=== PATIENT | male | born 1960 | race African-American/Black ===

== ENCOUNTER 2017-09-21 21:56 | Observation (INO) | payer OTHER ==
--- NOTE | 2017-09-21 22:07 | PDOC ---
History of Present Illness - General Stated Complaint: CHEST PAIN Time Seen by Provider: 09/21/17 22:06 Past History - Past Medical History Allergies/Adverse Reactions: Allergies Allergy/AdvReac Type Severity Reaction Status Date / Time No Known Allergies Allergy Verified 06/24/14 13:30 Home Medications: Ambulatory Orders Amlodipine Besylate [Norvasc -] 5 mg PO DAILY 06/24/14 Aspirin [ASA -] 325 mg PO DAILY 06/24/14 Benazepril HCl 20 mg PO DAILY 06/24/14 Carvedilol 3.125 mg PO BID 06/24/14 HTN: Yes - Suicide/Smoking/Psychosocial Hx Smoking History: Never smoked Have you smoked in the past 12 months: No Hx Alcohol Use: No Substance Use Type: None
[2017-09-21] MEDS ORDERED: NITROGLYCERIN 2% OINTMENT - 1GM PACKET TD ONE ×2 (22:24→22:32)
[2017-09-21 22:26] VITALS: BMI 30.1
--- NOTE | 2017-09-21 22:37 | PDOC ---
History of Present Illness - General History Source: Patient Exam Limitations: No Limitations - History of Present Illness Initial Comments: 09/21/17 22:31 Patient is a 57M with history of MIx2 (2015 and 2009) here today complaining of sudden onset of chest pain at rest. Patient states that he was sitting in the [employer] store when he suddenly felt chest pain with associated shortness of breath , vertigo and diaphoresis. Patient states that he then lost consciousness for an unknown period of time. He rapidly returned to baseline. He took one of his home nitros and reports resolutions of his symptoms. He currently denies chest pain. He denies leg swelling, history of blood clots, and recent travel. Cards: Dr Camarena <Pato Coy - Last Filed: 09/21/17 23:59> <Jesús Trevizo - Last Filed: 09/22/17 01:24> - General Chief Complaint: Chest Pain Stated Complaint: CHEST PAIN Time Seen by Provider: 09/21/17 22:06 Past History - Past Medical History HTN: Yes - Suicide/Smoking/Psychosocial Hx Smoking History: Never smoked Have you smoked in the past 12 months: No Information on smoking cessation initiated: No Hx Alcohol Use: No Drug/Substance Use Hx: No Substance Use Type: None <Pato Coy - Last Filed: 09/21/17 23:59> <Jesús Trevizo - Last Filed: 09/22/17 01:24> - Past Medical History Allergies/Adverse Reactions: Allergies Allergy/AdvReac Type Severity Reaction Status Date / Time No Known Allergies Allergy Verified 09/21/17 22:14 Home Medications: Ambulatory Orders Amlodipine Besylate [Norvasc -] 5 mg PO DAILY 06/24/14 Aspirin [ASA -] 325 mg PO DAILY 06/24/14 Carvedilol 3.125 mg PO BID 06/24/14 Review of Systems - Review of Systems Comments:: 09/21/17 22:36 GENERAL/CONSTITUTIONAL: No fever or chills. No weakness. HEAD, EYES, EARS, NOSE AND THROAT: No change in vision. No sore throat. CARDIOVASCULAR: Positive for chest pain and shortness of breath RESPIRATORY: No cough, wheezing, or hemoptysis. GASTROINTESTINAL: Positive for nausea. Negative for vomiting, diarrhea or constipation. GENITOURINARY: No dysuria, frequency, or change in urination. MUSCULOSKELETAL: No joint or muscle swelling or pain. No neck or back pain. SKIN: No rash NEUROLOGIC: No headache, vertigo, loss of consciousness, or change in strength/ sensation. ENDOCRINE: No increased thirst. No abnormal weight change HEMATOLOGIC/LYMPHATIC: No anemia, easy bleeding, or history of blood clots. ALLERGIC/IMMUNOLOGIC: No hives or skin allergy. <Pato Coy - Last Filed: 09/21/17 23:59> *Physical Exam - Vital Signs Last Vital Signs Temp Pulse Resp BP Pulse Ox 98.0 F 62 18 118/84 99 09/21/17 22:02 09/21/17 22:02 09/21/17 22:02 09/21/17 22:02 09/21/17 22:02 - Physical Exam Comments: 09/21/17 22:37 GENERAL: Awake, alert, and fully oriented, in no acute distress HEAD: No signs of trauma, normocephalic, atraumatic EYES: PERRLA, EOMI, sclera anicteric, conjunctiva clear ENT: Auricles normal inspection, hearing grossly normal, nares patent, oropharynx clear without exudates. Moist mucosa LUNGS: No distress, speaks full sentences, clear to auscultation bilaterally HEART: Regular rate and rhythm, normal S1 and S2, no murmurs, rubs or gallops, peripheral pulses normal and equal bilaterally. ABDOMEN: Soft, nontender, normoactive bowel sounds. No guarding, no rebound. No masses EXTREMITIES: Normal inspection, Normal range of motion, no edema. No clubbing or cyanosis. NEUROLOGICAL: Cranial nerves II through XII grossly intact. Normal speech, normal gait, no focal sensorimotor deficits SKIN: Warm, Dry, normal turgor, no rashes or lesions noted. <Pato Coy - Last Filed: 09/21/17 23:59> - Vital Signs Last Vital Signs Temp Pulse Resp BP Pulse Ox 98.0 F 62 18 118/84 99 09/21/17 22:02 09/21/17 22:02 09/21/17 22:02 09/21/17 22:02 09/21/17 22:02 <Jesús Trevizo - Last Filed: 09/22/17 01:24> ED Treatment Course - LABORATORY CBC & Chemistry Diagram: 09/21/17 22:32 09/21/17 22:32 - RADIOLOGY Radiology Studies Ordered: Category Date Time Status CHEST X-RAY PORTABLE* [RAD] Stat Radiology 09/21/17 22:18 Ordered - Medications Given in the ED: ED Medications Discontinued Medications Generic Name Dose Route Start Last Admin Trade Name Freq PRN Reason Stop Dose Admin Nitroglycerin 1 inch 09/21/17 22:24 09/21/17 22:30 Nitro-Bid 2% Paste - TD 09/21/17 22:25 1 inch ONCE ONE Administration <Pato Coy - Last Filed: 09/21/17 23:59> - LABORATORY CBC & Chemistry Diagram: 09/21/17 22:32 09/21/17 22:32 - ADDITIONAL ORDERS Additional order review: Laboratory Results 09/21/17 09/21/17 22:32 22:32 PT with INR 12.60 INR 1.12 Sodium 143 Potassium 3.3 L Chloride 106 Carbon Dioxide 28 Anion Gap 9 BUN 17 D Creatinine 1.0 Creat Clearance w eGFR > 60 Random Glucose 141 H D Calcium 8.2 L Magnesium 2.1 Total Bilirubin 0.7 D AST 15 D ALT 26 D Alkaline Phosphatase 103 D Creatine Kinase 326 H Creatine Kinase Index 0.6 CK-MB (CK-2) 2.102 Troponin I < 0.02 D Total Protein 6.8 Albumin 3.9 09/21/17 22:32 RBC 4.39 MCV 87.1 MCHC 33.8 RDW 13.3 MPV 8.3 Neutrophils % 56.1 Lymphocytes % 28.8 D Monocytes % 7.9 Eosinophils % 6.2 H Basophils % 1.0 - Medications Given in the ED: ED Medications Discontinued Medications Generic Name Dose Route Start Last Admin Trade Name Freq PRN Reason Stop Dose Admin Nitroglycerin 1 inch 09/21/17 22:24 09/21/17 22:30 Nitro-Bid 2% Paste - TD 09/21/17 22:25 1 inch ONCE ONE Administration Potassium Chloride 40 meq 09/22/17 00:34 09/22/17 00:49 K-Dur - PO 09/22/17 00:35 40 meq ONCE ONE Administration <Jesús Trevizo - Last Filed: 09/22/17 01:24> Medical Decision Making - Medical Decision Making 09/21/17 22:37 Patient is 57M with history of CAD, MIx2 here today with syncopal episode. History concerning for possible run of VTach. Vital signs stable, and exam normal. Will evaluate with cbc, cmp, trop, mg, pt/inr, ekg, cxr. Will admit. Patient took aspirin at home 325 this morning. Given 1inch of paste. EKG shows 1st degree av block with rate of 79. No st elevations/depression. No significant t wave abnormalities. MO elongated to 296. Q waves in III and aVF stable to prior EKG done in 06/24/2014. 09/21/17 23:03 CXR shows no acute cardiopulmonary process. 09/21/17 23:59 CBC reassuring. Signed out to Dr Trevizo. <Pato Coy - Last Filed: 09/21/17 23:59> *DC/Admit/Observation/Transfer <Pato Coy - Last Filed: 09/21/17 23:59> - Discharge Dispostion Decision to Admit order: Yes <Jesús Trevizo - Last Filed: 09/22/17 01:24> Diagnosis at time of Disposition: Chest pain Qualifiers: Chest pain type: unspecified Qualified Code(s): R07.9 - Chest pain, unspecified Syncope Qualifiers: Syncope type: unspecified Qualified Code(s): R55 - Syncope and collapse - Discharge Dispostion Condition at time of disposition: Fair
[2017-09-21 22:47] LABS: EOS % 6.2 % (0-4.5); HEMATOCRIT 38.2 % (35.4-49); HEMOGLOBIN 12.9 GM/dL (11.7-16.9); LYMPH % 28.8 % (8-40); MCH 29.4 pg (25.7-33.7); MCHC 33.8 g/dl (32.0-35.9); MEAN CELL VOLUME 87.1 fl (80-96); MEAN PLT VOLUME 8.3 fl (7.5-11.1); MONO % 7.9 % (3.8-10.2); NEUT % 56.1 % (42.8-82.8); PLATELET COUNT 168 K/MM3 (134-434); RBC 4.39 M/mm3 (4.00-5.60); RDW 13.3 % (11.9-15.9); WHITE BLOOD COUNT 6.2 K/mm3 (4.0-10.0)
--- NOTE | 2017-09-21 23:03 | PDOC ---
Attending Attestation - HPI HPI: 09/21/17 23:47 The patient is a 57 year old male, with a significant past medical history of MIx2 (2016 and 2010), who presents to the emergency department complaining of chest pain onset today and a syncopal episode. He notes that he was at rest when the pain began. He describes the pain as ranging from mild to moderate, without radiation or modifying factors. He notes that he also has been experiencing diaphoresis, shortness of breath and vertigo. He notes that he is not aware of how long he was unconscious for. He notes that he took his home nitros, which helped resolve his symptoms. The patient denies headache, fever, chills, nausea, vomiting, diarrhea and constipation. Denies dysuria, frequency, urgency and hematuria. Allergies: None Cardiology: Dr. Camarena <Isidro Dominique - Last Filed: 09/21/17 23:47> - Resident Resident Name: Pato Coy - ED Attending Attestation I have performed the following: I have examined & evaluated the patient, The case was reviewed & discussed with the resident, I agree w/resident's findings & plan, Exceptions are as noted - Physicial Exam PE: 09/22/17 00:11 Patient is awake and alert, well-appearing, in no distress Normocephalic, atraumatic PERRLA, EOMI CTA, RRR No lower extremity edema - Medical Decision Making 09/22/17 00:11 Patient is a well-appearing 57-year-old male with history of CAD (status post NM 2), negative angiocatheter March 2017, presents with substernal chest tightness associated with diaphoresis, lightheadedness, and shortness of breath that was relieved by sublingual Nitrostat which in turn was followed by a syncopal episode without witnessed seizure-like activity. In the ER, patient is awake and alert, nontoxic-appearing. Chest x-ray reveals no evidence of cardiomegaly/infiltrate or effusion. EKG reveals first-degree AV block but no evidence of acute ischemia and borderline widened QRS. EKG is unchanged from previous. I suspect ACS. There is no indication for CT of head at this time as patient is nonfocal I do not suspect seizure as the underlying cause of his syncope. Patient has taken a full aspirin-325 mg prior to arrival. We'll administer transdermal nitroglycerin. Will obtain cardiac enzymes. Will admit with cardiology consult. 09/22/17 01:25 Patient is resting comfortably and is currently pain-free. First set of cardiac enzymes reveals an elevated CPK but a negative CK-MB fraction as well as negative troponin. Patient's heart score is noted to be 5. Patient will be admitted to telemetry further evaluation and treatment with a cardiology consultation. <Jesús Trevizo - Last Filed: 09/22/17 01:26> Heart Score/ECG Review - History History: Highly suspicious - Electrocardiogram EKG: Non specific repolarization disturbance - Age Age: 45-65 - Risk Factors Risk Factors Heart Score: Yes Hx Hypertension Based on the list above the patient has:: 1-2 risk factors - Troponin Troponin: </= normal limit - Score Heart Score - Total: 5 <Jesús Trevizo - Last Filed: 09/22/17 01:26>
[2017-09-21 23:06] LABS: INR 1.12 (0.82-1.09); PROTHROMBIN TIME (PATIENT) 12.6 SEC (9.7-13.0)
[2017-09-22 00:19] LABS: ALBUMIN 3.9 g/dl (3.4-5.0); CALCIUM 8.2 mg/dL (8.5-10.1); CO2 28 mmol/L (21-32); GLUCOSE,RANDOM 141 mg/dL (74-106); MAGNESIUM 2.1 mg/dL (1.8-2.4)
[2017-09-22 00:27] LABS: ALK PHOS 103 U/L (45-117); ANION GAP 9 (8-16); CHLORIDE 106 mmol/L (98-107); POTASSIUM 3.3 mmol/L (3.5-5.1); SGOT/AST 15 U/L (15-37); SGPT/ALT 26 U/L (12-78); SODIUM 143 mmol/L (136-145); TOT PROT 6.8 g/dl (6.4-8.2)
[2017-09-22] MEDS ORDERED: POTASSIUM CHLORIDE TABS 20 MEQ TABLET.ER (FP) PO ONE ×2 (00:34→01:57)
[2017-09-22 00:39] LABS: BILIRUBIN,TOTAL 0.7 mg/dL (0.2-1.0); BLOOD UREA NITROGEN 17 mg/dL (7-18)
[2017-09-22 06:39] VITALS: TEMP 98.1
[2017-09-22 07:14] VITALS: BP 118/67; PULSE 64
[2017-09-22 08:12] LABS: BASO % 0.9 % (0-2.0); EOS % 4.8 % (0-4.5); HEMATOCRIT 37.1 % (35.4-49); HEMOGLOBIN 12.8 GM/dL (11.7-16.9); MCH 30.3 pg (25.7-33.7); MCHC 34.6 g/dl (32.0-35.9); MEAN CELL VOLUME 87.7 fl (80-96); NEUT % 54.3 % (42.8-82.8); PLATELET COUNT 160 K/MM3 (134-434); RBC 4.23 M/mm3 (4.00-5.60); RDW 13.3 % (11.9-15.9); WHITE BLOOD COUNT 6.7 K/mm3 (4.0-10.0)
[2017-09-22 08:25] LABS: ALBUMIN 4.1 g/dl (3.4-5.0); ANION GAP 6 (8-16); BLOOD UREA NITROGEN 12 mg/dL (7-18); CALCIUM 8.8 mg/dL (8.5-10.1); CHLORIDE 108 mmol/L (98-107); CO2 30 mmol/L (21-32); CREATININE 0.8 mg/dL (0.7-1.3); GLUCOSE,RANDOM 79 mg/dL (74-106); SODIUM 144 mmol/L (136-145)
[2017-09-22 08:30] LABS: ALK PHOS 104 U/L (45-117); BILIRUBIN,TOTAL 1.8 mg/dL (0.2-1.0); SGOT/AST 15 U/L (15-37); SGPT/ALT 27 U/L (12-78); TOT PROT 7.1 g/dl (6.4-8.2)
--- NOTE | 2017-09-22 08:48 | HP ---
Admitting History and Physical - Primary Care Physician PCP: Wilfred Hannon - Admission Chief Complaint: chest pain History of Present Illness: was shopping, while developed retrosternal chest pain, non-radiating, immediately took 1 sl ntg. became diaphoretic, felt like passed out, however never hit the floor. ems gave him oxygen and took him to er chest pain lasted no more than 3-5 minutes - Past Medical History Cardiovascular: Yes: HTN, PA (card. cath and did not require intervention, no significant stenosis or occlusion was found as per pt. PA x2 in past since 2011) Musculoskeletal: Yes: Osteoarthritis - Smoking History Smoking history: Never smoked Have you smoked in the past 12 months: No - Alcohol/Substance Use Hx Alcohol Use: No History of Substance Use: reports: None - Social History History of Recent Travel: No Home Medications - Allergies Allergies/Adverse Reactions: Allergies Allergy/AdvReac Type Severity Reaction Status Date / Time No Known Allergies Allergy Verified 09/21/17 22:14 - Home Medications Home Medications: Ambulatory Orders Amlodipine Besylate [Norvasc -] 5 mg PO DAILY 06/24/14 Aspirin [ASA -] 325 mg PO DAILY 06/24/14 Carvedilol 3.125 mg PO BID 06/24/14 Family Disease History - Family Disease History Family Disease History: Diabetes: Brother (HTN), Heart Disease: Father (HTN), Mother (HTN), Brother Review of Systems Findings/Remarks: none now - Review of Systems Constitutional: reports: No Symptoms Eyes: reports: No Symptoms HENT: reports: No Symptoms Neck: reports: No Symptoms Cardiovascular: reports: No Symptoms Respiratory: reports: No Symptoms Gastrointestinal: reports: No Symptoms Genitourinary: reports: No Symptoms Musculoskeletal: reports: No Symptoms Integumentary: reports: No Symptoms Neurological: reports: No Symptoms Psychiatric: reports: No Symptoms Physical Examination Vital Signs: Vital Signs Temperature 98.1 F 09/22/17 07:12 Pulse Rate 64 09/22/17 07:12 Respiratory Rate 18 09/22/17 07:14 Blood Pressure 118/67 09/22/17 07:12 O2 Sat by Pulse Oximetry (%) 95 09/22/17 07:14 Constitutional: Yes: Well Nourished, No Distress, Calm Eyes: Yes: WNL HENT: Yes: WNL Neck: Yes: WNL Cardiovascular: Yes: WNL, Regular Rate and Rhythm. No: Murmur Respiratory: Yes: WNL, CTA Bilaterally Gastrointestinal: Yes: WNL Musculoskeletal: Yes: WNL Extremities: Yes: WNL Edema: No Peripheral Pulses WNL: Yes Psychiatric: Yes: WNL Labs: CBC, BMP 09/22/17 07:45 Laboratory Tests 09/21/17 09/21/17 09/21/17 22:32 22:32 22:32 WBC 6.2 RBC 4.39 Hgb 12.9 D Hct 38.2 MCV 87.1 MCH 29.4 MCHC 33.8 RDW 13.3 Plt Count 168 MPV 8.3 Neutrophils % 56.1 Lymphocytes % 28.8 D Monocytes % 7.9 Eosinophils % 6.2 H Basophils % 1.0 PT with INR 12.60 INR 1.12 Sodium 143 Potassium 3.3 L Chloride 106 Carbon Dioxide 28 Anion Gap 9 BUN 17 D Creatinine 1.0 Creat Clearance w eGFR > 60 Random Glucose 141 H D Calcium 8.2 L Magnesium 2.1 Total Bilirubin 0.7 D AST 15 D ALT 26 D Alkaline Phosphatase 103 D Creatine Kinase 326 H Creatine Kinase Index 0.6 CK-MB (CK-2) 2.102 Troponin I < 0.02 D Total Protein 6.8 Albumin 3.9 Triglycerides Cholesterol Total LDL Cholesterol HDL Cholesterol 09/22/17 09/22/17 09/22/17 07:45 07:45 07:45 WBC 6.7 RBC 4.23 Hgb 12.8 Hct 37.1 MCV 87.7 MCH 30.3 MCHC 34.6 RDW 13.3 Plt Count 160 MPV 9.0 Neutrophils % 54.3 Lymphocytes % 32.0 Monocytes % 8.0 Eosinophils % 4.8 H Basophils % 0.9 PT with INR INR Sodium 144 Potassium 4.0 D Chloride 108 H Carbon Dioxide 30 Anion Gap 6 L BUN 12 D Creatinine 0.8 Creat Clearance w eGFR > 60 Random Glucose 79 D Calcium 8.8 Magnesium Total Bilirubin 1.8 H D AST 15 ALT 27 Alkaline Phosphatase 104 Creatine Kinase 312 H Creatine Kinase Index CK-MB (CK-2) Troponin I < 0.02 Total Protein 7.1 Albumin 4.1 Triglycerides Cancelled Cholesterol Cancelled Total LDL Cholesterol Cancelled HDL Cholesterol Cancelled Imaging - Results Chest X-ray: Image Reviewed EKG: Image Reviewed Problem List - Problems (1) Hypertension Code(s): I10 - ESSENTIAL (PRIMARY) HYPERTENSION (2) Chest pain Code(s): R07.9 - CHEST PAIN, UNSPECIFIED Qualifiers: Chest pain type: unspecified Qualified Code(s): R07.9 - Chest pain, unspecified (3) Syncope Code(s): R55 - SYNCOPE AND COLLAPSE Qualifiers: Syncope type: unspecified Qualified Code(s): R55 - Syncope and collapse Assessment/Plan serial cardiac enzymes negx2 awaiting cardiology f/up most recent cath in March showed no occlusion as per pt no symptoms at present check echo continue home meds including asa/bblocker/statin
[2017-09-22 08:51] LABS: CHOLESTEROL 100 mg/dL (50-200); TRIGLYCERIDES 64 mg/dL (35-160)
[2017-09-22 08:53] LABS: HDL CHOLESTEROL 30 mg/dL (40-60)
[2017-09-22] MEDS ORDERED: amLODIPine BESYLATE 5 MG TABLET (FP) PO SCH (10:00)
[2017-09-22] MEDS ORDERED: CARVEDILOL 3.125 MG TABLET (FP) PO SCH (10:00)
[2017-09-22] MEDS ORDERED: ASPIRIN 325 MG TABLET PO SCH (10:00)
--- NOTE | 2017-09-22 10:53 | EKG ---
Test Reason : Blood Pressure : / mmHG Vent. Rate : 062 BPM Atrial Rate : 062 BPM P-R Int : 296 ms QRS Dur : 120 ms QT Int : 422 ms P-R-T Axes : 052 001 062 degrees QTc Int : 428 ms SINUS RHYTHM WITH SINUS ARRHYTHMIA WITH 1ST DEGREE A-V BLOCK LEFT VENTRICULAR HYPERTROPHY WITH QRS WIDENING ABNORMAL ECG WHEN COMPARED WITH ECG OF 24-JUN-2014 14:01, NO SIGNIFICANT CHANGE WAS FOUND Confirmed by ARIELA FERNANDES, ANNIE ([id number]) on 09/22/2017 10:52:49 AM Referred By: Confirmed By:ANNIE TITUS MD
--- NOTE | 2017-09-22 11:03 | CON.CARD ---
Cardiology Consult (text) - Consultation Consultation Note: cc: cp, presyncope hpi: 57 m hx htn ?Cad/[place] (pt reports mi 2011, 2014, no pci done, cath 03/2017 normal cors), here with cp/presyncope. Pt has chronic episodes of cp with atypical features, evaluated several times in past most recently with nl cath . Also has recurrent episodes of presyncope with n/v sweating. Occurs every few mos. Yesterday had same episode at store so ems called. No sob, palps, pnd, orthopnea, le edema. Feels well now, wants to go home. pmh: per hpi psh: cath social: no tob fam: no premature cad, scd ros: per hpi; no fever, cough, smith, vision changes, gib, hematuria, wt loss, muscle pains meds: Home Medications Medication Instructions Recorded Amlodipine Besylate [Norvasc -] 5 mg PO DAILY 06/24/14 Aspirin [ASA -] 325 mg PO DAILY 06/24/14 Carvedilol 3.125 mg PO BID 06/24/14 pe: Vital Signs Period Temp Pulse Resp BP Sys/[place] Pulse Ox Last 24 Hr 98 F-98.1 F 62-68 18-18 112-135/67-97 95-99 nad no jvd rrr s1s2 no mrg cta bl nl eff aao3 no le e/c/c abd nt nd pos bs no janudice diaphoresis abd nt nd pos bs Laboratory Last Values WBC 6.7 K/mm3 (4.0-10.0) 09/22/17 07:45 RBC 4.23 M/mm3 (4.00-5.60) 09/22/17 07:45 Hgb 12.8 GM/dL (11.7-16.9) 09/22/17 07:45 Hct 37.1 % (35.4-49) 09/22/17 07:45 MCV 87.7 fl (80-96) 09/22/17 07:45 MCH 30.3 pg (25.7-33.7) 09/22/17 07:45 MCHC 34.6 g/dl (32.0-35.9) 09/22/17 07:45 RDW 13.3 % (11.9-15.9) 09/22/17 07:45 Plt Count 160 K/MM3 (134-434) 09/22/17 07:45 MPV 9.0 fl (7.5-11.1) 09/22/17 07:45 Neutrophils % 54.3 % (42.8-82.8) 09/22/17 07:45 Lymphocytes % 32.0 % (8-40) 09/22/17 07:45 Monocytes % 8.0 % (3.8-10.2) 09/22/17 07:45 Eosinophils % 4.8 % (0-4.5) H 09/22/17 07:45 Basophils % 0.9 % (0-2.0) 09/22/17 07:45 PT with INR 12.60 SEC (9.7-13.0) 09/21/17 22:32 INR 1.12 (0.82-1.09) 09/21/17 22:32 Sodium 144 mmol/L (136-145) 09/22/17 07:45 Potassium 4.0 mmol/L (3.5-5.1) D 09/22/17 07:45 Chloride 108 mmol/L (98-107) H 09/22/17 07:45 Carbon Dioxide 30 mmol/L (21-32) 09/22/17 07:45 Anion Gap 6 (8-16) L 09/22/17 07:45 BUN 12 mg/dL (7-18) D 09/22/17 07:45 Creatinine 0.8 mg/dL (0.7-1.3) 09/22/17 07:45 Creat Clearance w eGFR > 60 (>60) 09/22/17 07:45 Random Glucose 79 mg/dL (74-106) D 09/22/17 07:45 Calcium 8.8 mg/dL (8.5-10.1) 09/22/17 07:45 Magnesium 2.1 mg/dL (1.8-2.4) 09/21/17 22:32 Total Bilirubin 1.8 mg/dL (0.2-1.0) H D 09/22/17 07:45 AST 15 U/L (15-37) 09/22/17 07:45 ALT 27 U/L (12-78) 09/22/17 07:45 Alkaline Phosphatase 104 U/L (45-117) 09/22/17 07:45 Creatine Kinase 312 IU/L (39-308) H 09/22/17 07:45 Creatine Kinase Index 0.6 % (0.0-5.0) 09/22/17 07:45 CK-MB (CK-2) 2.015 ng/mL (0.5-3.6) 09/22/17 07:45 Troponin I < 0.02 ng/ml (0.00-0.05) 09/22/17 07:45 Total Protein 7.1 g/dl (6.4-8.2) 09/22/17 07:45 Albumin 4.1 g/dl (3.4-5.0) 09/22/17 07:45 Triglycerides 64 mg/dL (35-160) 09/22/17 07:45 Cholesterol 100 mg/dL (50-200) 09/22/17 07:45 Total LDL Cholesterol 66 mg/dL (5-100) 09/22/17 07:45 HDL Cholesterol 30 mg/dL (40-60) L 09/22/17 07:45 ecg: sr 1st avb, nl qtc, no ischemic changes, similar to priors echo 01/2017: nl lv/vr, mild ar, nl rvsp cath 03/2017: normal cors cxr: clear lungs tele: sr a/p: 57 m hx htn ?[place]ad/[place] (pt reports mi 2011, 2014, no pci done, cath 03/2017 normal cors), here with cp/presyncope. cp: -recurrent sxs, evaluated with recent cath showing normal cors 03/2017 and unremarkable echo 01/2017 -no signs acs here, ce's neg -no suggestion of cardiac etiology htn: -cont home meds cad/mi -per pt had mi's in past but cath shows normal cors and echo shows no wma's -cont bb,asa,statin presyncope: -evaluated as outpt with normal cath, unremarkable echo, and unremarkable 30 day event monitor -does not seem cardiac -pt given info to make outpt neuro appt for further eval echo done today, if benign then ok for dc
[2017-09-22] MEDS ORDERED: ATORVASTATIN CA 20 MG TABLET (FP) PO SCH (22:00)
--- NOTE | 2017-09-23 08:19 | DS ---
Physical Examination Vital Signs: Vital Signs Temperature 98.1 F 09/22/17 07:12 Pulse Rate 64 09/22/17 07:12 Respiratory Rate 18 09/22/17 07:14 Blood Pressure 118/67 09/22/17 07:12 O2 Sat by Pulse Oximetry (%) 95 09/22/17 07:14 Findings/Remarks: please see h+p for exam. Labs: CBC, BMP 09/22/17 07:45 09/22/17 07:45 Discharge Summary Reason For Visit: SYNCOPE CHEST PAIN Hospital Course: patient admitted after chest pain episode and near-syncope/syncope after sl NTG , likely vaso-vagal. serial cardiac enzymes, ekg and echo was unremarkable. pt was asymptomatic throughout hospital stay. medically stable to wi home with outpt follow up. Condition: Fair - Instructions Diet, Activity, Other Instructions: f/up next week Disposition: HOME - Home Medications Comprehensive Discharge Medication List: Ambulatory Orders Amlodipine Besylate [Norvasc -] 5 mg PO DAILY 06/24/14 Aspirin [ASA -] 325 mg PO DAILY 06/24/14 Carvedilol 3.125 mg PO BID 06/24/14 Atorvastatin Ca [Lipitor] 20 mg PO HS tablet 09/22/17
== END 2017-09-22 15:04 | disposition home or self-care (01) ==
LOC: JER 21:56 → INTOOBSV 09-22 01:25 → JERBED 09-22 01:25 → UNDOADMIN 09-22 01:53 → JERBED 09-22 01:53 → J4W 09-22 02:35
PROVIDERS: ADMIT Internal Medicine; ATTEND Internal Medicine
DX: R07.9 Chest pain, unspecified (principal); R55 Syncope and collapse; I10 Essential (primary) hypertension; I25.10 Atherosclerotic heart disease of native coronary artery without angina pectoris; I25.2 Old myocardial infarction; E74.8 Other specified disorders of carbohydrate metabolism; Z79.82 Long term (current) use of aspirin
CPT/HCPCS: 36415; 71045-TC-FY; 80053; 80061; 82550; 82553; 83721; 83735; 84484; 85025; 85610; 93005; 93010; 93306-TC; 99284-25; G0378

== ENCOUNTER 2022-04-05 04:09 | Day surgery (SDC) | payer OTHER ==
[2022-03-31 10:57] VITALS: BMI 27.8
[2022-04-05 07:49] VITALS: RESP 20
[2022-04-05] MEDS ORDERED: FENTANYL CITRATE/PF 50 MCG/ML VIAL ONE (10:10)
[2022-04-05] MEDS ORDERED: PROPOFOL 20 ML ONE ×2 (10:29→10:46)
[2022-04-05 12:04] VITALS: BP 143/89; PULSE 62; TEMP 97.8
== END 2022-04-05 12:24 | disposition home or self-care (01) ==
LOC: JASU-SURG 04:09
PROVIDERS: ATTEND Urology
PROC: 0TF3XZZ Fragmentation in Right Kidney Pelvis, External Approach (ICD-10-PCS; principal; 2022-04-05 09:30)
DX: N20.0 Calculus of kidney (principal)